=== PATIENT | female | born 1960 | race Asian ===

== ENCOUNTER 2019-07-31 17:22 | Outpatient (CLI) | payer BC ==
[2019-07-31 17:59] LABS: PLATELET COUNT 279 K/uL (152-353)
[2019-07-31 18:37] LABS: POTASSIUM 4.1 mmol/L (3.6-5.2); SODIUM 141 mmol/L (136-145)
== END 2019-07-31 20:23 | disposition home or self-care (01) ==
LOC: RAD 17:22
PROVIDERS: Nurse Practitioner Family
DX: R07.9 Chest pain, unspecified (principal); M54.2 Cervicalgia
CPT/HCPCS: 36415; 80053; 84484; 85027

== ENCOUNTER 2021-05-16 15:42 | Outpatient (CLI) | payer BC | END 2021-05-16 21:08 | disposition home or self-care (01) | LOC: RAD 15:42 | PROVIDERS: ATTEND Nurse Practitioner Family | DX: R31.0 Gross hematuria (principal); R80.9 Proteinuria, unspecified; N39.0 Urinary tract infection, site not specified ==

== ENCOUNTER 2021-08-03 08:56 | Outpatient (CLI) | payer BC ==
[2021-08-03 09:50] LABS: PLATELET COUNT 238 K/uL (152-353)
[2021-08-03 10:21] LABS: POTASSIUM 4.3 mmol/L (3.6-5.2)
== END 2021-08-03 20:04 | disposition home or self-care (01) ==
LOC: CT 08:56 → LABW 08:56 → CT 09:00
PROVIDERS: ATTEND Internal Medicine
DX: N28.1 Cyst of kidney, acquired (principal); N39.0 Urinary tract infection, site not specified
CPT/HCPCS: 36415; 80053; 81000; 82570; 84155; 85027; Q9963

== ENCOUNTER 2021-09-26 09:34 | Outpatient (CLI) | payer BC | END 2021-09-26 19:18 | disposition home or self-care (01) | LOC: CT 09:34 | PROVIDERS: ATTEND Internal Medicine | DX: R91.1 Solitary pulmonary nodule (principal) | CPT/HCPCS: 36415; 82565; 84520; Q9963 ==

== ENCOUNTER 2021-10-18 09:53 | Outpatient (CLI) | payer BC | END 2021-10-18 19:02 | disposition home or self-care (01) | LOC: RAD 09:53 | PROVIDERS: ATTEND Allergy & Immunology | DX: Z13.820 Encounter for screening for osteoporosis (principal); M85.89 Other specified disorders of bone density and structure, multiple sites ==

== ENCOUNTER 2021-11-03 11:07 | Outpatient (CLI) | payer BC ==
[2021-11-03 12:20] LABS: PLATELET COUNT 244 K/uL (152-353)
[2021-11-03 12:52] LABS: POTASSIUM 4.3 mmol/L (3.6-5.2)
== END 2021-11-03 19:10 | disposition home or self-care (01) ==
LOC: LABW 11:07
PROVIDERS: ATTEND Nurse Practitioner Family
DX: D64.9 Anemia, unspecified (principal); R53.82 Chronic fatigue, unspecified; M85.50 Aneurysmal bone cyst, unspecified site; E03.9 Hypothyroidism, unspecified
CPT/HCPCS: 36415; 80053; 80061; 81000; 82043; 82306; 82570; 82607; 83036; 84436; 84443; 85027

== ENCOUNTER 2022-02-06 09:49 | Outpatient (CLI) | payer BC | END 2022-02-06 19:52 | disposition home or self-care (01) | LOC: US 09:49 | PROVIDERS: ATTEND Specialist | DX: N28.1 Cyst of kidney, acquired (principal) ==

== ENCOUNTER 2022-03-07 07:55 | Outpatient (CLI) | payer BC ==
[2022-03-07 08:27] LABS: POTASSIUM 3.8 mmol/L (3.6-5.2)
[2022-03-07 08:28] LABS: PLATELET COUNT 237 K/uL (152-353)
== END 2022-03-07 18:59 | disposition home or self-care (01) ==
LOC: LABW 07:55
PROVIDERS: ATTEND Internal Medicine
DX: N39.0 Urinary tract infection, site not specified (principal)
CPT/HCPCS: 36415; 80053; 81000; 82570; 84156; 85027

== ENCOUNTER 2022-11-13 07:54 | Outpatient (CLI) | payer BC | END 2022-11-13 19:21 | disposition home or self-care (01) | LOC: RAD 07:54 | PROVIDERS: ATTEND Nurse Practitioner Family | DX: M85.88 Other specified disorders of bone density and structure, other site (principal) ==